=== PATIENT | male | born 1935 | race Caucasian/White ===

== ENCOUNTER 2017-09-13 21:58 | Emergency (ER) | payer OTHER, BC ==
[2017-09-13 22:50] LABS: Absolute Lymphocytes (CBC) 1.4 K/uL (0.7-4.9); Absolute Monocytes 0.7 K/uL (0.1-1.3); Absolute Neutrophil 6.5 K/uL (1.8-8.0); Basophils % 0.5 % (0-1.3); Eosinophils % 0.8 % (0-4.4); Hematocrit 37.1 % (39.6-49.0); Lymphocytes % 15.8 % (15.3-44.8); MCH 32.2 pg (27.0-35.0); MCV 93.4 fL (80-100); MPV 9.7 fL (7.6-11.3); Monocytes % 7.8 % (3.3-12.3); RBC Red Blood Cell Count 3.97 M/uL (4.33-5.43)
[2017-09-13 23:12] LABS: Albumin 3.3 g/dL (3.4-5.0); Bilirubin Direct 0.2 mg/dL (0-0.2); Bilirubin Total 0.5 mg/dL (0.2-1.0); Potassium 4.2 mmol/L (3.5-5.1); Protein, Total 6.4 g/dL (6.4-8.2)
[2017-09-14 00:12] LABS: Urine Blood TRACE (NEG); Urine Glucose 3+ (NEG); Urine Protein 2+ (NEG); Urine pH 6.5 (5.0-7.0)
[2017-09-14] MEDS ORDERED: INSULIN -REGULAR HUMAN 50 UNIT/0.5 ML ML ONE (00:45)
--- NOTE | 2017-09-14 02:03 | EDPHYS ---
Physician Documentation [facility] Name: Rodger Encinas Age: 81 yrs Sex: Male : 1935 Arrival Date: 09/13/2017 Time: 22:01 Bed 3 Private MD: ED Physician Wicho Calderón HPI: 09/14 00:12 This 81 yrs old Male presents to ER via EMS with complaints of High Blood jr8 Sugar. 00:12 Patient brought in by EMS after being found by maintenance crew at his apartment. jr8 Stated that he was sitting in his car confused. Blood sugar elevated. Patient alert to person, place, time, event upon arrival. Stated that he had gone to [employer] for dinner. Was sitting in his car for dinner. Stated that he has been non compliant with his medicines. Denies any pain currently . Severity of symptoms: At their worst the symptoms were mild in the emergency department the symptoms are unchanged. It is unknown whether or not the patient has had similar symptoms in the past. The patient has not recently seen a physician. Historical: - Allergies: 09/13 22:07 No Known Allergies; fc - Home Meds: 22:07 Unable to obtain [Active]; fc - PMHx: 22:07 Diabetes - NIDDM; Hypertension; Septic Shock; fc - PSHx: 22:07 Unable to obtain; fc - Immunization history:: Last tetanus immunization: unknown. - Social history:: Smoking status: Patient uses tobacco products. - Ebola Screening: : Patient negative for fever greater than or equal to 101.5 degrees Fahrenheit, and additional compatible Ebola Virus Disease symptoms Patient denies exposure to infectious person Patient denies travel to an Ebola-affected area in the 21 days before illness onset. ROS: 09/14 00:12 Eyes: Negative for injury, pain, redness, and discharge, ENT: Negative for injury, jr8 pain, and discharge, Neck: Negative for injury, pain, and swelling, Cardiovascular: Negative for chest pain, palpitations, and edema, Respiratory: Negative for shortness of breath, cough, wheezing, and pleuritic chest pain, Abdomen/GI: Negative for abdominal pain, nausea, vomiting, diarrhea, and constipation, Back: Negative for injury and pain, MS/Extremity: Negative for injury and deformity, Skin: Negative for injury, rash, and discoloration. Neuro: Positive for altered mental status, Negative for dizziness, gait disturbance, headache, hearing loss, loss of consciousness, numbness, seizure activity, speech changes, syncope, near syncope, tingling, tinnitus, tremor, visual changes, weakness. Exam: 00:19 Head/Face: Normocephalic, atraumatic. Eyes: Pupils equal round and reactive to light, jr8 extra-ocular motions intact. Lids and lashes normal. Conjunctiva and sclera are non-icteric and not injected. Cornea within normal limits. Periorbital areas with no swelling, redness, or edema. ENT: Nares patent. No nasal discharge, no septal abnormalities noted. Tympanic membranes are normal and external auditory canals are clear. Oropharynx with no redness, swelling, or masses, exudates, or evidence of obstruction, uvula midline. Mucous membranes moist. Neck: Trachea midline, no thyromegaly or masses palpated, and no cervical lymphadenopathy. Supple, full range of motion without nuchal rigidity, or vertebral point tenderness. No Meningismus. Cardiovascular: Regular rate and rhythm with a normal S1 and S2. No gallops, murmurs, or rubs. Normal PMI, no JVD. No pulse deficits. Respiratory: Lungs have equal breath sounds bilaterally, clear to auscultation and percussion. No rales, rhonchi or wheezes noted. No increased work of breathing, no retractions or nasal flaring. Abdomen/GI: Soft, non-tender, with normal bowel sounds. No distension or tympany. No guarding or rebound. No evidence of tenderness throughout. Back: No spinal tenderness. No costovertebral tenderness. Full range of motion. Skin: Warm, dry with normal turgor. Normal color with no rashes, no lesions, and no evidence of cellulitis. MS/ Extremity: Pulses equal, no cyanosis. Neurovascular intact. Full, normal range of motion. Neuro: Awake and alert, GCS 15, oriented to person, place, time, and situation. Cranial nerves II-XII grossly intact. Motor strength 5/5 in all extremities. Sensory grossly intact. Cerebellar exam normal. Normal gait. Vital Signs: 09/13 21:55 BP 140 / 105; Pulse 80; Resp 20; Temp 99.2(O); Pulse Ox 98% on R/A; Weight 122.47 kg fc (R); Height 6 ft. 0 in. (182.88 cm) (R); Pain 0/10; 22:30 BP 165 / 84; Pulse 75; Resp 14; Pulse Ox 97% ; bp 23:32 BP 144 / 90; Pulse 74; Resp 16; Pulse Ox 99% on R/A; mt 09/14 00:37 BP 153 / 80; Pulse 70; Resp 14; Pulse Ox 96% ; bp 01:46 BP 168 / 78; Pulse 72; Resp 14; Pulse Ox 98% ; bp 03:07 BP 153 / 66; Pulse 66; Resp 14; Pulse Ox 100% ; bp 09/13 21:55 Body Mass Index 36.62 (122.47 kg, 182.88 cm) fc Raysa Coma Score: 00:19 Eye Response: spontaneous(4). Verbal Response: oriented(5). Motor Response: obeys jr8 commands(6). Total: 15. MDM: 09/13 22:12 Patient medically screened. jr8 09/14 02:02 Data reviewed: vital signs, nurses notes, lab test result(s), and as a result, I will jr8 discharge patient. Data interpreted: Pulse oximetry: on room air is 98 %. Interpretation: normal. Counseling: I had a detailed discussion with the patient and/or guardian regarding: the historical points, exam findings, and any diagnostic results supporting the discharge/admit diagnosis, lab results, the need for outpatient follow up, a family practitioner, to return to the emergency department if symptoms worsen or persist or if there are any questions or concerns that arise at home. Response to treatment: patient is well hydrated. 09/13 22:12 Order name: Basic Metabolic Panel; Complete Time: 23:31 09/13 22:12 Order name: CBC with Diff; Complete Time: 22:59 8 09/13 22:12 Order name: Creatinine for Radiology; Complete Time: 23:12 8 09/13 22:12 Order name: Hepatic Function; Complete Time: 23:31 8 09/13 22:12 Order name: Lipase; Complete Time: 23:09/13 23:06 Order name: Urine Dipstick--Ancillary (enter results); Complete Time: 00:19 mw2 09/13 22:24 Order name: EKG; Complete Time: 22:24 mt 09/13 23:54 Order name: glucometer results - FOR PT WITH NO ID; Complete Time: 00:11 mt 09/14 08:07 Order name: Diet Ada 1800 Butch; Complete Time: 08:07 hb 09/13 22:12 Order name: IV Saline Lock; Complete Time: 22:23 [facility] 09/13 22:12 Order name: Labs collected and sent; Complete Time: 22:23 [facility] 09/13 22:12 Order name: Urine Dipstick-Ancillary (obtain specimen); Complete Time: 23:03 [facility] 09/13 22:24 Order name: EKG - Nurse/Tech; Complete Time: 22:24 mt Administered Medications: 09/13 23:10 Drug: NS 0.9% 1000 ml Route: IV; Rate: 1000 ml; Site: right forearm; bp 23:10 Drug: Insulin Regular Human 10 units {Co-Signature: faye (Brigida Zeng RN).} Route: IVP; bp Site: right forearm; 09/14 00:20 Follow up: Response: No adverse reaction bp 00:47 Drug: NS 0.9% 1000 ml Route: IV; Rate: 1000 ml; Site: right wrist; bp 00:48 Drug: Insulin Regular Human 10 units {Co-Signature: faye (Brigida Zeng RN).} Route: bp Sub-Q; Site: right upper arm; 02:08 Follow up: Response: No adverse reaction; Marked relief of symptoms bp 00:57 Drug: Insulin Regular Human 10 units {Co-Signature: faye (Brigida Zeng RN).} Route: IVP; bp Site: right forearm; 02:08 Follow up: Response: Marked relief of symptoms bp Point of Care Testing: Blood Glucose: 09/13 22:10 Blood Glucose: 495 mg/dL; dc 23:53 Blood Glucose: 423 mg/dL; mt 09/14 01:59 Blood Glucose: 204 mg/dL; bp Ranges: Critical Glucose Levels:Adult <50 mg/dl or >400 mg/dl <40 mg/dl or >180 mg/dl Disposition: 09/14/17 02:02 Discharged to Home. Impression: Type 2 diabetes mellitus with hyperglycemia. - Condition is Stable. - Discharge Instructions: Hyperglycemia. - Medication Reconciliation Form, Thank You Letter, Antibiotic Education, Prescription Opioid Use form. - Follow up: Private Physician; When: 1 - 2 days; Reason: Recheck today's complaints, Continuance of care, Re-evaluation by your physician. - Problem is new. - Symptoms have improved. Addendum: 09/15/2017 12:17 Co-signature as Attending Physician, Wicho Calderón MD I agree with the assessment and w a plan of care. Signatures: Dispatcher [employer] EDNettie Wilson RN RN Halina Duran RN RN Neal Cook PA PA jrMaryam Schilling mt, William, MD MD wa Peltier, Brian, RN RN bp Brigida Zeng RN, ea Corrections: (The following items were deleted from the chart) 09/14 09:46 02:02 09/14/2017 02:02 Discharged to Home. Impression: Type 2 diabetes mellitus with sv hyperglycemia. Condition is Stable. Forms are Medication Reconciliation Form, Thank You Letter, Antibiotic Education, Prescription Opioid Use. Follow up: Private Physician; When: 1 - 2 days; Reason: Recheck today's complaints, Continuance of care, Re-evaluation by your physician. Problem is new. Symptoms have improved. jr8
--- NOTE | 2017-09-14 02:03 | ER ---
Nurse's Notes [facility] Name: Rodger Encinas Age: 81 yrs Sex: Male : 1935 Arrival Date: 09/13/2017 Time: 22:01 Bed 3 Private MD: Diagnosis: Type 2 diabetes mellitus with hyperglycemia Presentation: 09/13 21:55 Presenting complaint: EMS states: that pt was found in his car by the maintenance staff fc at his apartment complex approx 1 hr prior to their arrival. Pt is confused. EMS vital signs 191/76, heart rate of 78, sats of 96% on roomair. Transition of care: patient was not received from another setting of care. Onset of symptoms was September 13, 2017 at 20:45. Risk Assessment: Do you want to hurt yourself or someone else? Patient reports no desire to harm self or others. Initial Sepsis Screen: Does the patient meet any 2 criteria? No. Patient's initial sepsis screen is negative. Does the patient have a suspected source of infection? No. Patient's initial sepsis screen is negative. Care prior to arrival: Glucose check: 568. 21:55 Method Of Arrival: EMS: [facility] 21:55 Acuity: PARUL 2 fc Historical: - Allergies: 22:07 No Known Allergies; fc - Home Meds: 22:07 Unable to obtain [Active]; fc - PMHx: 22:07 Diabetes - NIDDM; Hypertension; Septic Shock; fc - PSHx: 22:07 Unable to obtain; fc - Immunization history:: Last tetanus immunization: unknown. - Social history:: Smoking status: Patient uses tobacco products. - Ebola Screening: : Patient negative for fever greater than or equal to 101.5 degrees Fahrenheit, and additional compatible Ebola Virus Disease symptoms Patient denies exposure to infectious person Patient denies travel to an Ebola-affected area in the 21 days before illness onset. Screenin:06 Abuse screen: Denies threats or abuse. Nutritional screening: No deficits noted. fc Tuberculosis screening: No symptoms or risk factors identified. Assessment: 22:00 General: Appears in no apparent distress. uncomfortable, Behavior is appropriate for bp age, anxious, uncooperative. Pain: Denies pain. Neuro: Level of Consciousness is awake, alert, Oriented to REFUSING TO ANSWER. Cardiovascular: No deficits noted. Respiratory: Airway is patent Respiratory effort is even, unlabored, Respiratory pattern is regular, symmetrical. GI: No signs and/or symptoms were reported involving the gastrointestinal system. : No signs and/or symptoms were reported regarding the genitourinary system. EENT: No deficits noted. Derm: No deficits noted. Musculoskeletal: Circulation, motion, and sensation intact. Range of motion: intact in all extremities, Reports weakness in right arm, left arm, right leg and left leg. 09/14 00:00 Reassessment: BGL IMPROVING. PT AOx4, VS STABLE ON MONITOR. bp 01:47 Reassessment: IVF INFUSING PRIOR TO NEXT BGL, PT RESTING QUIETLY, VS STABLE ON MONITOR. bp 02:07 Reassessment: PT TBDC. ATTEMPTED TO CONTACT FAMILY AT PROVIDED NUMBER ([facility] bp [phone]) WITH NO RESPONSE AT THIS TIME. 03:07 Reassessment: NO RESPONSE FROM PROVIDED NUMBER FOR FAMILY. PT REMAINS STABLE, RESTING bp QUIETLY. Vital Signs: 09/13 21:55 BP 140 / 105; Pulse 80; Resp 20; Temp 99.2(O); Pulse Ox 98% on R/A; Weight 122.47 kg fc (R); Height 6 ft. 0 in. (182.88 cm) (R); Pain 0/10; 22:30 BP 165 / 84; Pulse 75; Resp 14; Pulse Ox 97% ; bp 23:32 BP 144 / 90; Pulse 74; Resp 16; Pulse Ox 99% on R/A; mt 09/14 00:37 BP 153 / 80; Pulse 70; Resp 14; Pulse Ox 96% ; bp 01:46 BP 168 / 78; Pulse 72; Resp 14; Pulse Ox 98% ; bp 03:07 BP 153 / 66; Pulse 66; Resp 14; Pulse Ox 100% ; bp 09/13 21:55 Body Mass Index 36.62 (122.47 kg, 182.88 cm) Rembrandt Coma Score: 00:19 Eye Response: spontaneous(4). Verbal Response: oriented(5). Motor Response: obeys jr8 commands(6). Total: 15. ED Course: 09/13 21:55 Arm band placed on Patient placed in an exam room, on a stretcher. fc 22:01 Patient arrived in ED. fc 22:05 Triage completed. fc 22:06 Patient has correct armband on for positive identification. Bed in low position. Call light in reach. Side rails up X2. 22:10 [facility]. jr8 22:12 Wicho Calderón MD is Attending Physician. jr8 22:27 Blaise Cano, RN is Primary Nurse. bp 22:27 Inserted saline lock: 22 gauge in right forearm, using aseptic technique. bp Administered Medications: 23:10 Drug: NS 0.9% 1000 ml Route: IV; Rate: 1000 ml; Site: right forearm; bp 23:10 Drug: Insulin Regular Human 10 units {Co-Signature: fyae (Brigida Zeng RN).} Route: IVP; bp Site: right forearm; 09/14 00:20 Follow up: Response: No adverse reaction bp 00:47 Drug: NS 0.9% 1000 ml Route: IV; Rate: 1000 ml; Site: right wrist; bp 00:48 Drug: Insulin Regular Human 10 units {Co-Signature: faye (Brigida Zeng RN).} Route: bp Sub-Q; Site: right upper arm; 02:08 Follow up: Response: No adverse reaction; Marked relief of symptoms bp 00:57 Drug: Insulin Regular Human 10 units {Co-Signature: faye (Brigida Zeng RN).} Route: IVP; bp Site: right forearm; 02:08 Follow up: Response: Marked relief of symptoms bp Point of Care Testing: Blood Glucose: 09/13 22:10 Blood Glucose: 495 mg/dL; mt 23:53 Blood Glucose: 423 mg/dL; mt 08 01:59 Blood Glucose: 204 mg/dL; bp Ranges: Outcome: 02:02 Discharge ordered by . jr8 09:46 Patient left the ED. sv Signatures: Nettie Castillo RN RN Halina Roblero RN RN Neal Marti PA PA [facility] Blaise Cano RN RN bp Brigida Zeng RN, ea
[2017-09-14 09:55] VITALS: BP 153/66; O2SAT 100
--- NOTE | 2017-09-14 14:37 | EKG ---
Test Date: 2017-09-13 Test Time: 22:19:10 Quarter Supervisor: BOZENA MEASUREMENT RESULTS: Intervals: Rate: 78 AZ: 210 QRSD: 94 QT: 392 QTc: 446 [place]: P: 68 AZ: 210 QRS: 41 T: 68 INTERPRETIVE STATEMENTS: Sinus rhythm with 1st degree AV block Otherwise normal ECG Compared to ECG 04/30/2016 11:42:13 First degree AV block now present Electronically Signed On 09-14-17 14:35:24 CDT by Kang Ralph
== END 2017-09-14 09:46 | disposition home or self-care (01) ==
LOC: ER 21:58
DX: E11.65 Type 2 diabetes mellitus with hyperglycemia (principal); I10 Essential (primary) hypertension; Z72.0 Tobacco use
CPT/HCPCS: 36415; 80048; 80076; 81003; 82962; 83690; 85025; 93005; 96372; 96374; 99284

== ENCOUNTER 2017-10-28 23:02 | Emergency (ER) | payer OTHER, BC ==
--- NOTE | 2017-10-29 02:01 | ER ---
Nurse's Notes [facility] Name: Rodger Encinas Age: 82 yrs Sex: Male : 1935 Arrival Date: 10/28/2017 Time: 23:05 Bed 18 Private MD: Diagnosis: Abrasion of other part of head;Sprain of ligaments of cervical spine Presentation: 10/28 22:56 Acuity: PARUL 2 22:56 Presenting complaint: EMS states: that they were toned for pt fall, pt had tripped and fc hit his head on the carpet. Has a large abrasion to forehead. They were out there earlier today for the same thing. Pt is very dirty and has stool all over his feet and legs. EMS states that there is stool all over the floor and barnett at pts apartment. APS has been notified by EMS regarding this issue and family is attempting to have pt moved to long term. Care prior to arrival: Bleeding of injury controlled. Glucose check: 449. Mechanism of Injury: Fall from standing position. Trauma event details: Injury occurred in the [facility], Injury occurred: at home. Injury occurred: October 28, 2017. 22:56 Method Of Arrival: EMS: [facility] 22:56 Transition of care: [facility]. Onset of symptoms was October 28, 2017. Risk Assessment: Do you want to hurt yourself or someone else? Patient reports no desire to harm self or others. Initial Sepsis Screen: Does the patient meet any 2 criteria? No. Patient's initial sepsis screen is negative. Does the patient have a suspected source of infection? No. Patient's initial sepsis screen is negative. Trauma Activation: Alert Physician: ED Physician; Name: Consuelo; Notified At: 22:56; Arrived At: 22:56 Physician: General Surgeon; Name: ; Notified At: 22:56; Arrived At: Physician: Radiology; Name: Bee Crawford; Notified At: 22:56; Arrived At: 23:00 Physician: Respiratory; Name: ; Notified At: 22:56; Arrived At: Physician: Lab; Name: ; Notified At: 22:56; Arrived At: Historical: - Allergies: 23:15 No Known Allergies; fc - Home Meds: 23:15 Lantus 100 unit/mL Sub-Q soln [Active]; fc - PMHx: 23:15 Hypertension; septic shock; Diabetes - IDDM; fc - PSHx: 23:15 Unable to obtain; fc - Immunization history: Last tetanus immunization: unknown. - Social history:: Smoking status: Patient/guardian denies using tobacco. - Ebola Screening: : Patient negative for fever greater than or equal to 101.5 degrees Fahrenheit, and additional compatible Ebola Virus Disease symptoms Patient denies exposure to infectious person Patient denies travel to an Ebola-affected area in the 21 days before illness onset. Screenin:56 Abuse screen: Denies threats or abuse. Tuberculosis screening: No symptoms or risk fc factors identified. 22:56 Nutritional screening: No deficits noted. Fall Risk Fall in past 12 months (25 points). fc Secondary diagnosis (15 points) impaired mobility, No IV (0 pts). Ambulatory Aid- None/Bed Rest/Nurse Assist (0 pts). Gait- Weak (10 pts.). Mental Status- Overestimates/Forgets Limitations (15 pts.). Total Van Fall Scale indicates High Risk Score (45 or more points). Fall prevention measures have been instituted. Side Rails Up X 2 Placed Close to Nursing Station Frequent Obs/Assessments Occuring Family Present and informed to notify staff if the need to leave the bedside As available patient and family educated on Fall Prevention Program and Strategies. Primary Survey: 23:35 Breathing/Chest: Respiratory pattern:. Circulation: Cardiac rhythm: sinus rhythm. ao Disability Alert. 10/29 00:05 Reassessment Breathing/Chest Respiratory pattern Regular Circulation Heart rhythm Sinus ao rhythm Disability Alert. 00:05 Reassessment Airway Airway. ao Assessment: 10/28 23:06 General: Appears in no apparent distress. comfortable, Behavior is calm, cooperative, ao appropriate for age. Pain: Complains of pain in forehead Pain does not radiate. Neuro: Level of Consciousness is awake, alert, obeys commands, Oriented to person, place, time, situation, Appropriate for age Moves all extremities. Full function Speech is normal, Facial symmetry appears normal, Pupils are PERRLA. Cardiovascular: Capillary refill < 3 seconds Patient's skin is warm and dry. Respiratory: Airway is patent Respiratory effort is even, unlabored, Respiratory pattern is regular, symmetrical, Breath sounds are clear bilaterally. GI: Abdomen is obese, Bowel sounds present X 4 quads. : No signs and/or symptoms were reported regarding the genitourinary system. EENT: No signs and/or symptoms were reported regarding the EENT system. Derm: Skin is intact, Skin is pink, warm \T\ dry. normal, Skin temperature is warm. Musculoskeletal: Circulation, motion, and sensation intact. Range of motion: intact in all extremities. 10/29 00:10 Reassessment: Patient appears in no apparent distress at this time. Patient and/or ao family updated on plan of care and expected duration. Pain level reassessed. Patient is alert, oriented x 3, equal unlabored respirations, skin warm/dry/pink. Waiting on patient from CT and xraid. 01:10 Reassessment: Patient appears in no apparent distress at this time. Patient and/or ao family updated on plan of care and expected duration. Pain level reassessed. Patient is alert, oriented x 3, equal unlabored respirations, skin warm/dry/pink. Unable to get blood to get lab work. Lab to be called. Patient states that he would like to stop getting lab work. 01:51 Reassessment: Patient refuses Lab work and stated that he wants to go home. Dr Consuelo rolle was notified. 02:48 Reassessment: Patient called few family members and was trying to get a family member ao to take him home. Waiting for family member to get patient to be discharge. 03:14 Reassessment: Patient's family called a taxi cab to take patient back home. Dr Consuelo rolle was notified and was okay to NH. Patient stated that a family member would be waiting for him back home. 03:16 Reassessment: Patient appears in no apparent distress at this time. Patient was taken ao in a wheelchair to a taxi cab. Patient agree with the POC and to follow up with PCP. Vital Signs: 10/28 22:56 BP 157 / 76; Pulse 65; Resp 20; Temp 98.0(O); Pulse Ox 100% on R/A; Weight 90.72 kg fc (R); Height 5 ft. 8 in. (172.72 cm) (R); Pain /10; 10/29 00:20 BP 148 / 74; Pulse 78; Resp 16; Pulse Ox 100% ; ao 01:50 BP 138 / 73; Pulse 62; Resp 18; Pulse Ox 100% on R/A; ao 02:50 BP 145 / 72; Pulse 76; Resp 18; Pulse Ox 97% on R/A; ao 03:16 BP 142 / 70; Pulse 72; Resp 18; Pulse Ox 98% on R/A; ao 10/28 22:56 Body Mass Index 30.41 (90.72 kg, 172.72 cm) fc [place] Coma Score: 10/28 22:56 Eye Response: spontaneous(4). Verbal Response: oriented(5). Motor Response: obeys fc commands(6). Total: 15. Trauma Score (Adult): 22:56 Eye Response: spontaneous(1); Verbal Response: oriented(1); Motor Response: obeys fc commands(2); Systolic BP: > 89 mm Hg(4); Respiratory Rate: 10 to 29 per min(4); Raysa Score: 15; Trauma Score: 12 ED Course: 22:56 Patient has correct armband on for positive identification. Bed in low position. Call fc light in reach. Side rails up X2. 22:56 Arm band placed on Patient placed in an exam room, on a stretcher. fc 22:56 Patient maintains SpO2 saturation greater than 95% on room air. fc 22:56 No provider procedures requiring assistance completed. fc 23:00 Thermoregulation: warm blanket given to patient. fc 23:05 Patient arrived in ED. fc 23:05 Matt Calvillo RN is Primary Nurse. ao 23:09 Valdo Cordero MD is Attending Physician. gs 23:10 Triage completed. 10/29 00:00 Pelvis XRAY In Process Unspecified. EDMS 00:08 CT completed. Patient tolerated procedure well. Patient moved to CT via stretcher. sj Patient moved back from CT. 00:09 CT Head C Spine In Process Unspecified. EDMS 00:20 Missed attempt(s): 22 gauge in left forearm. Patient refused IV. Patient did not have ao IV access during this emergency room visit. 00:56 XRAY Chest (1 view) In Process Unspecified. EDMS 00:56 Lumbar Spine (3 Views) XRAY In Process Unspecified. EDMS Administered Medications: No medications were administered Intake: 03:19 PO: 50ml (Water); Total: 50ml. ao Outcome: 02:00 Discharge ordered by . gs 03:16 Discharged to home via wheelchair, Taxi cab ao 03:16 Condition: stable 03:16 Discharge instructions given to patient, Instructed on discharge instructions, follow up and referral plans. Demonstrated understanding of instructions, follow-up care, medications. 03:19 Patient's length of stay in the Emergency Department was greater than 2 hours. ao 03:19 Patient left the ED. ao Signatures: Dispatcher [employer] Yamileth Johnson Felicia, RN RN Matt Chen RN RN Valdo Londono MD MD
--- NOTE | 2017-10-29 02:01 | EDPHYS ---
Physician Documentation [facility] Name: Rodger Encinas Age: 82 yrs Sex: Male : 1935 Arrival Date: 10/28/2017 Time: 23:05 Bed 18 Private MD: ED Physician Valdo Cordero HPI: 10/29 03:57 This 82 yrs old Male presents to ER via EMS with complaints of Fall Injury. gs 03:57 Details of fall: The patient fell from an upright position. Onset: The symptoms/episode gs began/occurred acutely. Associated injuries: The patient sustained injury to the head, abrasion, neck injury, pain, injury to the low back, contusion. Severity of symptoms: At their worst the symptoms were moderate, in the emergency department the symptoms are unchanged. The patient has experienced similar episodes in the past, a few times. no loc. Historical: - Allergies: 10/28 23:15 No Known Allergies; fc - Home Meds: 23:15 Lantus 100 unit/mL Sub-Q soln [Active]; fc - PMHx: 23:15 Hypertension; septic shock; Diabetes - IDDM; fc - PSHx: 23:15 Unable to obtain; fc - Immunization history: Last tetanus immunization: unknown. - Social history:: Smoking status: Patient/guardian denies using tobacco. - Ebola Screening: : Patient negative for fever greater than or equal to 101.5 degrees Fahrenheit, and additional compatible Ebola Virus Disease symptoms Patient denies exposure to infectious person Patient denies travel to an Ebola-affected area in the 21 days before illness onset. ROS: 10/29 03:57 All other systems are negative. gs Exam: 03:57 Eyes: Pupils equal round and reactive to light, extra-ocular motions intact. Lids and gs lashes normal. Conjunctiva and sclera are non-icteric and not injected. Cornea within normal limits. Periorbital areas with no swelling, redness, or edema. ENT: Nares patent. No nasal discharge, no septal abnormalities noted. Tympanic membranes are normal and external auditory canals are clear. Oropharynx with no redness, swelling, or masses, exudates, or evidence of obstruction, uvula midline. Mucous membranes moist. Chest/axilla: Normal chest wall appearance and motion. Nontender with no deformity. No lesions are appreciated. Cardiovascular: Regular rate and rhythm with a normal S1 and S2. No gallops, murmurs, or rubs. Normal PMI, no JVD. No pulse deficits. Respiratory: Lungs have equal breath sounds bilaterally, clear to auscultation and percussion. No rales, rhonchi or wheezes noted. No increased work of breathing, no retractions or nasal flaring. Abdomen/GI: Soft, non-tender, with normal bowel sounds. No distension or tympany. No guarding or rebound. No evidence of tenderness throughout. 03:57 Skin: Warm, dry with normal turgor. Normal color with no rashes, no lesions, and no evidence of cellulitis. MS/ Extremity: Pulses equal, no cyanosis. Neurovascular intact. Full, normal range of motion. Neuro: Awake and alert, GCS 15, oriented to person, place, time, and situation. Cranial nerves II-XII grossly intact. Motor strength 5/5 in all extremities. Sensory grossly intact. Cerebellar exam normal. Normal gait. 03:57 Constitutional: The patient appears alert, awake. 03:57 Head/face: Noted is abrasion(s), that are mild, of the forehead. 03:57 Neck: C-spine: vertebral tenderness, that is mild, appreciated at C4 and C5. 03:57 Back: vertebral tenderness, is appreciated at L4. 03:57 ECG was reviewed by the Attending Physician. Vital Signs: 10/28 22:56 BP 157 / 76; Pulse 65; Resp 20; Temp 98.0(O); Pulse Ox 100% on R/A; Weight 90.72 kg (R); Height 5 ft. 8 in. (172.72 cm) (R); Pain 4/10; 10/29 00:20 BP 148 / 74; Pulse 78; Resp 16; Pulse Ox 100% ; ao 01:50 BP 138 / 73; Pulse 62; Resp 18; Pulse Ox 100% on R/A; ao 02:50 BP 145 / 72; Pulse 76; Resp 18; Pulse Ox 97% on R/A; ao 03:16 BP 142 / 70; Pulse 72; Resp 18; Pulse Ox 98% on R/A; ao 10/28 22:56 Body Mass Index 30.41 (90.72 kg, 172.72 cm) Butler Coma Score: 10/28 22:56 Eye Response: spontaneous(4). Verbal Response: oriented(5). Motor Response: obeys fc commands(6). Total: 15. Trauma Score (Adult): 22:56 Eye Response: spontaneous(1); Verbal Response: oriented(1); Motor Response: obeys fc commands(2); Systolic BP: > 89 mm Hg(4); Respiratory Rate: 10 to 29 per min(4); Raysa Score: 15; Trauma Score: 12 MDM: 23:48 Patient medically screened. 10/29 03:57 Differential diagnosis: closed head injury, contusion, fracture. Data reviewed: vital gs signs, nurses notes. Counseling: I had a detailed discussion with the patient and/or guardian regarding: the historical points, exam findings, and any diagnostic results supporting the discharge/admit diagnosis, radiology results, pt refused blood work. Response to treatment: the patient's symptoms have markedly improved after treatment, and as a result, I will discharge patient. 10/28 23:22 Order name: XRAY Chest (1 view) 10/28 23:22 Order name: CT Head C Spine 10/28 23:22 Order name: Lumbar Spine (3 Views) XRAY 10/28 23:22 Order name: EKG; Complete Time: 23:22 10/28 23:22 Order name: Cardiac monitoring; Complete Time: 02:06 10/28 23:22 Order name: EKG - Nurse/Tech; Complete Time: 01:11 10/28 23:22 Order name: O2 Per Protocol; Complete Time: 23:40 10/28 23:22 Order name: O2 Sat Monitoring; Complete Time: 23:40 10/28 23:22 Order name: Pelvis XRAY EC:57 Rate is 69 beats/min. Rhythm is regular. TX interval is prolonged. QRS interval is gs normal. QT interval is normal. T waves are Flattened. Clinical impression: NSR w/ Non-specific ST/T Changes and Abnormal EKG without significant change. Interpreted by me. Administered Medications: No medications were administered Disposition: 10/29/17 02:00 Discharged to Home. Impression: Abrasion of other part of head, Sprain of ligaments of cervical spine. - Condition is Stable. - Discharge Instructions: Contusion, Cervical Sprain. - Medication Reconciliation Form, Thank You Letter, Antibiotic Education, Prescription Opioid Use form. - Follow up: Private Physician; When: 2 - 3 days; Reason: Re-evaluation by your physician. Signatures: Dispatcher [employer] EDHalina Simpson RN RN Matt Chen RN RN ao Starr, Gregory, MD MD Corrections: (The following items were deleted from the chart) 02:01 02:00 10/29/2017 02:00 Discharged to Home. Impression: Abrasion of other part of head. Condition is Stable. Forms are Medication Reconciliation Form, Thank You Letter, Antibiotic Education, Prescription Opioid Use. Follow up: Private Physician; When: 2 - 3 days; Reason: Re-evaluation by your physician. 02:10/28 23:22 IV Saline Lock ordered. [facility] 10/29 02:10/28 23:22 Labs collected and sent ordered. [facility] 10/29 03:15 10/28 23:22 Urine Dipstick-Ancillary ordered. [facility] 10/29 03:19 02:01 10/29/2017 02:00 Discharged to Home. Impression: Abrasion of other part of head; ao Sprain of ligaments of cervical spine. Condition is Stable. Discharge Instructions: Contusion, Cervical Sprain. Forms are Medication Reconciliation Form, Thank You Letter, Antibiotic Education, Prescription Opioid Use. Follow up: Private Physician; When: 2 - 3 days; Reason: Re-evaluation by your physician.
[2017-10-29 03:26] VITALS: BP 142/70; O2SAT 98
--- NOTE | 2017-10-29 09:13 | RAD REPORT ---
EXAM DESCRIPTION: CT - Head C Spine Mpr Wo Con - 10/29/2017 12:09 am CLINICAL HISTORY: Head and neck injury status post fall. Head and neck pain COMPARISON: 2016 TECHNIQUE: Computed axial tomography of the head and cervical spine was obtained. Sagittal and coronal reconstruction was performed. Preliminary report was generated by virtual radiologic in review prior to this dictation All CT scans are performed using dose optimization technique as appropriate and may include automated exposure control or mA/KV adjustment according to patient size. FINDINGS: An intracranial bleed is not seen. The ventricles are normal in caliber. An extra-axial fl uid collection is not noted.Fluid within the visualized sinuses and mastoids is not seen A cervical fracture is not visualized. No dislocation is noted. A right thyroid goiter is present IMPRESSION: No acute intracranial abnormality is seen. A cervical fracture is not visualized. If the patient continues to have symptoms to suggest intracra nial /spinal cord pathology then MRI would be recommended
--- NOTE | 2017-10-29 09:37 | RAD REPORT ---
EXAM DESCRIPTION: [place] Single View10/29/2017 12:56 am CLINICAL HISTORY: Chest pain COMPARISON: 2016 FINDINGS: The lungs appear clear of acute infiltrate. The heart is normal size IMPRESSION: No acute abnormalities displayed
--- NOTE | 2017-10-29 09:43 | RAD REPORT ---
EXAM DESCRIPTION: RAD - Pelvis - 10/29/2017 12:00 am CLINICAL HISTORY: Pelvic pain status post fall FINDINGS: No fracture or dislocation is seen. The bones are osteoporotic If the patient continues to have symptoms to suggest an occult fracture then an MRI would be recommen ded
--- NOTE | 2017-10-29 09:57 | RAD REPORT ---
EXAM DESCRIPTION: RAD - Lumbar Spine 3 Views - 10/29/2017 12:56 am CLINICAL HISTORY: Back pain FINDINGS: The alignment of the lumbar spine is satisfactory. No fracture or dislocation is seen. The bones are osteoporotic Mild spondylosis involves the lumbar spine
--- NOTE | 2017-10-29 12:09 | EKG ---
Test Date: 2017-10-29 Test Time: 01:00:14 Finished Cigar Maker: ANTON MEASUREMENT RESULTS: Intervals: Rate: 69 VA: 206 QRSD: 92 QT: 416 QTc: 445 [place]: P: 97 VA: 206 QRS: 42 T: 78 INTERPRETIVE STATEMENTS: Normal sinus rhythm Cannot rule out Anterior infarct, age undetermined Abnormal ECG Compared to ECG 09/13/2017 22:19:10 Myocardial infarct finding now present First degree AV block no longer present Electronically Signed On 10-29-17 12:07:21 CDT by Enrike Wilkes
== END 2017-10-29 03:19 | disposition home or self-care (01) ==
LOC: ER 23:02
DX: S00.91XA Abrasion of unspecified part of head, initial encounter (principal); S13.4XXA Sprain of ligaments of cervical spine, initial encounter; E11.9 Type 2 diabetes mellitus without complications; W01.0XXA Fall on same level from slipping, tripping and stumbling without subsequent striking against object, initial encounter; Y93.9 Activity, unspecified; Y92.9 Unspecified place or not applicable
CPT/HCPCS: 70450; 71045; 72100; 72125; 72170; 93005; 99284